=== PATIENT | female | born 1950 | race Caucasian/White ===

== ENCOUNTER 2023-11-19 14:17 | Emergency (ER) | payer MEDICARE, OTHER, SELFPAY ==
[2023-11-19 14:37] VITALS: BP 168/82
--- NOTE | 2023-11-19 16:37 | ED.GENMED ---
History of Present Illness
General
Chief Complaint: Head Injury
Source: patient
Exam Limitations: none
Time Seen by Provider: 11/19/23 16:25
Nursing documentation reviewed up to this point in time: agreed with except
History of Present Illness
History of Present Illness:
Patient states her dog pulled her over and she fell, hitting left side of face on pavement. No LOC. Incident occurred last pM. Today reports headache and feels that her vision is off. Brought to ED by family for eval.
Past History
Past History
ED Past Medical History: Other (osteoporosis)
Review of Systems
Review of Systems
Allergies reviewed?: Yes
All Other Systems: ROS reviewed and negative except as documented in HPI and ROS
Constitutional: Reports no symptoms
EENT: Reports no symptoms
Respiratory: Reports no symptoms
Cardiac: Reports no symptoms
ABD/GI: Reports no symptoms
: Reports no symptoms
Musculoskeletal: Reports no symptoms
Skin: Reports no symptoms
Neurological: Reports headache
Psychiatric: Reports no symptoms
Phy Exam
General Physical Exam
General Presentation: well appearing and no apparent distress
General age: appears stated age
General Skin: warm and dry
General Habitus: normal
Eye Exam
Eye Exam: PERRL, EOMI, conjunctiva normal and globe normal
Neurological Exam
Neurological Exam: alert, oriented x3, CN II-XII intact, no motor deficits, no sensory deficits, speech normal and normal gait
[place] Coma Scale
Eye Opening: Spontaneous
Verbal Response: Oriented
Motor Response: Obeys Commands
GCS Total Score: 15
Musculoskeletal Exam
Musculoskeletal Exam: full ROM and neuro vasc intact
Skin Exam
Skin Exam: normal color, warm/dry and no rash
Psychiatric Exam
Psychiatric Exam: normal mood/affect
Course
Orders/Labs/Results
Orders:
Orders
11/19/23 14:45
CT Head W/o Iv Contrast Urgent
Comment:
Reason For Exam: head injury
Vital Signs
Initial and Last Documented VS:
Initial Vital Signs
Temp Pulse Resp BP Pulse Ox
97.5 F 66 18 168/82 99
11/19/23 14:37 11/19/23 14:37 11/19/23 14:37 11/19/23 14:37 11/19/23 14:37
Last Documented Vital Signs
Temp Pulse Resp BP Pulse Ox
97.5 F 66 18 168/82 99
11/19/23 14:37 11/19/23 14:37 11/19/23 14:37 11/19/23 14:37 11/19/23 14:37
*Radiology
Radiology exam reviewed: radiology read reviewed
*Pulse Oximetry
Patient hypoxic: no
*Critical Care Note
Total Time (30-74mins, 75-104mins- exclusive of procedures): Not Applicable
Update Note
Update Note:
Discussed CT findings, including benign falx ossification, with patient. No acute findings on CT. She is discharged home and will follow up [facility] PCP.
ED Attending Note
-
Portions of this chart may have been created with voice recognition software.� Occasional wrong word or��sound alike� substitutions may have occurred due to the inherent limitations of voice recognition software.
Discharge Plan
Departure
Patient Disposition: Home (Routine Discharge)
Date of Disposition: 11/19/23
Time of Disposition: 16:36
Patient with high blood pressure during this ER visit?: No
Condition: Good
Covid-19: Not Applicable
Discharge Problem:
Head injury
Instructions: Head Injury in Adults (DC), Contusion (DC)
Referrals:
Donna Woodard MD [Family Provider] - Follow up in 2-3 days
Interventions
Interventions:
*Risk Screen - Suicide Last Done: 11/19/23 14:37
*General Assessment Last Done: 11/19/23 14:37
*Neglect/Abuse Screening Last Done: 11/19/23 15:52
*ED COVID-19 Vaccine History Last Done: 11/19/23 14:37
ED- Neurological Assessment Last Done: 11/19/23 15:52
ED-Skin Assessment Last Done: 11/19/23 15:52
Discharge Date and Time
Print Language: TRINIDADIAN
[2023-11-19 16:47] VITALS: BP 158/78
== END 2023-11-19 16:49 | disposition home or self-care (01) ==
LOC: EMR 14:17
PROVIDERS: EMERGENCY PHYSICIAN Emergency Medicine; FAMILY PHYSICIAN Internal Medicine
DX: S09.90XA Unspecified injury of head, initial encounter (principal); W19.XXXA Unspecified fall, initial encounter
CPT/HCPCS: 99284; 70450

== ENCOUNTER → 2023-12-05 20:05 | Outpatient (REF) | payer MEDICARE, OTHER, SELFPAY | LOC: MRI 3T 20:05 | PROVIDERS: ATTENDING PHYSICIAN Internal Medicine; REFERRING PHYSICIAN Psychiatry & Neurology Neurology | DX: R93.0 Abnormal findings on diagnostic imaging of skull and head, not elsewhere classified (principal) | CPT/HCPCS: 70553; A9575 ==

== ENCOUNTER → 2024-03-15 14:56 | Outpatient (REF) | payer MEDICARE, OTHER, SELFPAY | LOC: WDC 14:56 | PROVIDERS: ATTENDING PHYSICIAN Obstetrics & Gynecology; FAMILY PHYSICIAN Internal Medicine | DX: Z12.31 Encounter for screening mammogram for malignant neoplasm of breast (principal) | CPT/HCPCS: 77063; 77067 ==

== ENCOUNTER → 2024-08-05 13:33 | Outpatient (REF) | payer MEDICARE, OTHER, SELFPAY | LOC: RAD 13:33 | PROVIDERS: ATTENDING PHYSICIAN Internal Medicine | DX: E04.1 Nontoxic single thyroid nodule (principal) | CPT/HCPCS: 76536 ==

== ENCOUNTER 2024-09-23 06:25 | Day surgery (SDC) | payer MEDICARE, OTHER, SELFPAY | END 2024-09-23 15:12 | disposition home or self-care (01) | LOC: GI 06:25 | PROVIDERS: ATTENDING PHYSICIAN Internal Medicine | DX: Z12.11 Encounter for screening for malignant neoplasm of colon (principal); K57.30 Diverticulosis of large intestine without perforation or abscess without bleeding; K64.9 Unspecified hemorrhoids | CPT/HCPCS: G0121 ==

== ENCOUNTER → 2024-11-27 14:03 | Outpatient (REF) | payer MEDICARE, OTHER, SELFPAY | LOC: RAD 14:03 | PROVIDERS: ATTENDING PHYSICIAN Internal Medicine | DX: M81.0 Age-related osteoporosis without current pathological fracture (principal) | CPT/HCPCS: 77080 ==